=== PATIENT | male | born 2000 | race Caucasian/White ===

== ENCOUNTER → 2020-10-25 | Outpatient (CLI) | payer OTHER ==
[2020-10-25 14:26] LABS: BASOPHILS ABSOLUTE AUTO 0.04 K/mm3 (0.00-0.23); BASOPHILS PERCENT AUTO 1 % (0-2); EOSINOPHILS ABSOLUTE AUTO 0.17 K/mm3 (0.00-0.68); EOSINOPHILS PERCENT AUTO 2 % (0-6); Hematocrit 45.2 % (37.0-53.0); Hemoglobin 15.2 g/dL (13.5-17.5); IMMATURE GRAN ABSOLUTE AUTO 0.03 K/mm3 (0.00-0.10); IMMATURE GRAN PERCENT AUTO 0 % (0-1); LYMPHOCYTES ABSOLUTE AUTO 1.44 K/mm3 (0.84-5.20); LYMPHOCYTES PERCENT AUTO 20 % (21-46); MONOCYTES ABSOLUTE AUTO 0.47 K/mm3 (0.16-1.47); MONOCYTES PERCENT AUTO 7 % (4-13); Mean Corpuscular HGB 29.2 pg (26.0-34.0); Mean Corpuscular HGB Conc 33.6 g/dL (31.5-36.5); Mean Corpuscular Volume 87 fL (80-100); Mean Platelet Volume 10.4 fL (9.1-12.4); NEUTROPHILS ABSOLUTE AUTO 5.05 K/mm3 (1.96-9.15); NEUTROPHILS PERCENT AUTO 70 % (41-73); Platelet Count 212 K/mm3 (150-400); RDW Coefficient Variation 12.7 % (11.7-14.2); RDW Standard Deviation 40.1 fL (35.1-46.3)
[2020-10-25 14:45] LABS: Alanine Aminotransfer (ALT/SGP 34 U/L (12-78); Albumin, Blood 4.5 g/dL (3.4-5.0); Albumin/Globulin Ratio 1.3 (0.8-1.8); Alk Phos 68 U/L (40-126); Amylase, Blood 39 U/L (25-115); Anion Gap 11 mmol/L (6-16); Aspartate Aminotrans (AST/SGOT 23 U/L (12-37); Bilirubin, Total 0.7 mg/dL (0.1-1.0); Blood Urea Nitrogen 11 mg/dL (8-24); Bun/Creatinine Ratio 11.3 (12.0-20.0); CO2, Blood 28 mmol/L (21-32); Calcium, Blood 9.3 mg/dL (8.5-10.1); Chloride, Blood 101 mmol/L (98-108); Creatinine, Blood 0.97 mg/dL (0.60-1.20); Free Thyroxine 1.27 ng/dL (0.70-1.60); Globulin, Blood 3.4 g/dL (2.2-4.0); Glomerular Filtration Rate >60 (60-); Glucose, Blood 88 mg/dL (70-99); Potassium, Blood 3.7 mmol/L (3.5-5.5); Sodium, Blood 140 mmol/L (136-145); Total Protein, Blood 7.9 g/dL (6.4-8.2)
== END | disposition home or self-care (01) ==
LOC: LAB EV 14:19 → LAB SHORT 14:19
PROVIDERS: General Practice
DX: R11.2 Nausea with vomiting, unspecified (principal); R53.81 Other malaise
CPT/HCPCS: 80053; 82150; 84439; 84443; 85025

== ENCOUNTER 2022-12-31 05:55 | Day surgery (SDC) | payer OTHER ==
[2022-12-31] VITALS (12 sets, daily range): BP systolic 121–142; BP diastolic 69–97
[~2022-12-31] VITALS: Ht 185.4 cm; Wt 71.1 kg
[~2022-12-31 05:55] MED LIST: METPHE18ER PO
--- NOTE | 2022-12-31 09:45 | NUR ---
RN NOTICED INCREASED REDNEDD AROUND ALL INCSIONS PART WAY THROUGH RECOVERY, LEFT INCISION NOTED TO BE THE REDDEST WITH 5 CM OF CIRCOMFERENCE AROUND IT. DR PECK NOTIFED, SHE CAME TO ASSESS, ORDERS GIVEN FOR ORAL BENYADRYL 25MG PO. ORDERS ALSO GIVEN FOR HOME USE OF CORTIZONE CREAM, AND ADHESIVE REMOVER TO BE SENT HOME FOR PT TO USE AT 48 HRS THEN COVER INCISIONS WITH BANDAIDS, PT VERBALIZED UNDERSTANDING OF THESE INCSTRUCTIONS. RN GAVE PT MOTHER THESE INSTRUCTIONS. SHE VERBALIZED UNDERSTANDING, RN COMMUNICATED WITH DAY SURGERY RN TO MONITOR HIS REACTION TO SEE IF IT HAS INCREASED BEFORE DISCHARGE.
--- NOTE | 2022-12-31 10:37 | NUR ---
ABD OPSITES CDI; REDNESS HAS RESOLVED ON RIGHT & MIDLINE INCISIONS. LEFT INCISION SLIGHTLY RED, BUT WITH DECREASED SIZED, APPROX 3.5CM. PT CONTINUES TO DENY DISCOMFORT SUCH ITCHING OR BURNING. ABDOMINAL TENDERNESS MANAGEABLE AT 3/10, DECLINES FURTHER PAIN MEDICATION. DISCHARGE EDUCATION PROVIDED TO PATIENT & MOTHER, INCLUDING AT HOME BENADRYL, STOOL SOFTENERS, AND PAIN MANAGEMENT. PT A/O, CALM & TALKATIVE. Discharge instructions reviewed with patient. Patient verbalizes understanding. Copy given to patient to take home. Discharged via wheelchair to private car for ride home.
== END 2022-12-31 10:50 | disposition home or self-care (01) ==
LOC: ORSCMMR 05:55 → ORD 07:30 → ORSCMMR 10:50
PROVIDERS: Surgery
PROC: 0YU54JZ Supplement Right Inguinal Region with Synthetic Substitute, Percutaneous Endoscopic Approach (ICD-10-PCS; principal; 2022-12-31 07:30)
PROC: 8E0W4CZ Robotic Assisted Procedure of Trunk Region, Percutaneous Endoscopic Approach (ICD-10-PCS; principal; 2022-12-31 07:30)
DX: K40.30 Unilateral inguinal hernia, with obstruction, without gangrene, not specified as recurrent (principal); Z79.899 Other long term (current) drug therapy
CPT/HCPCS: 49650; S2900; A9270; C1781; J1100; J1885; J2310; J2405; J2704; J3010; J7120